=== PATIENT | female | born 1995 | race Caucasian/White ===

== ENCOUNTER 2017-12-02 02:02 | Inpatient (IN) ==
[2017-12-02] MEDS ORDERED: Naloxone Inj 0.4 MG/ML Vial IV.PUSH PRN ×2 (03:02→09:37)
[2017-12-02] MEDS ORDERED: Oxytocin 30 Units/500ml Premix 30 UNITS/500 ML BAG IV.SIG ONE (03:02)
[2017-12-02] MEDS ORDERED: fentaNYL Citrate Inj 100 MCG/2 ML Ampul IV.PUSH PRN ×2 (03:02)
[2017-12-02] MEDS ORDERED: Sodium Chlor 0.9% Inj 500 ML IV.SIG PRN (03:02)
[2017-12-02] MEDS ORDERED: Sod Chloride 0.9% Inj 1,000 ML IV.CONT PRN (03:02)
--- NOTE | 2017-12-02 03:02 | ED ---
History of Present Illness Primary Care Physician: UNKNOWN Chief Complaint: leaking fluid History of Present Illness: Patient is a 22yo at 40 weeks and 3 days. Patient receives care with [facility]. EDC 11-29-2017. Patient states she felt gush of fluid about 23:00 12/02/2017. Fluid was clear She reports irregular contractions starting after rupture. She reports active movements. No fevers or chills. GBS is NEGATIVE. Weeks Gestation:: 40 Para: 0 : 1 - Inpatient Certification I certify that the inpatient services were ordered in accordance with Medicare regulations governing the order. This includes certification that hospital inpatient services are reasonable and necessary and in the case of services not specified as inpatient-only under 42 CFR 419.22(n), that they are appropriately provided as inpatient services in accordance to with the 2-midnight benchmark under 43 CFR 412.3(e) Estimated Total Length of Stay (Days): 3 Plans for Post Hospital Care: Home Review of Systems All other systems reviewed negative except as stated in HPI PMFSH - History History Provided By: Patient - Medical / Surgical Hx Neg / Unobtainable Medical Problems Denied: Yes Surgical History: No Previous Surgery - Social History I have reviewed the patient's Social History: Yes - Tobacco History Second Hand Smoke Exposure: No Tobacco Use In Past 30 Days: No Smoking Status: Never smoker - Alcohol History How Often Do You Have a Drink Containing Alcohol: Never - Substance Use History Substance History: No History of Abuse Medications and Allergies Allergies Allergy/AdvReac Type Severity Reaction Status Date / Time No Known Allergies Allergy Verified 12/02/17 02:46 Home Medications Medication Instructions Recorded Confirmed Type folic acid 0.4 mg PO DAILY 12/02/17 12/02/17 History Exam Vital signs: Vital Signs 12/02/17 02:34 12/02/17 02:39 Temperature 97.9 F Pulse Rate 89 Respiratory Rate 18 Blood Pressure 118/62 Intake & Output 12/01/17 12/01/17 12/02/17 06:59 18:59 06:59 Weight 82.1 kg Narrative: GENERAL: Well-nourished, well-developed patient. SKIN: Warm and dry. HEAD: Normocephalic and atraumatic. EYES: No scleral icterus. No injection or drainage. ENT: No nasal drainage noted. Mucous membranes pink. Airway patent. NECK: Supple, trachea midline. No JVD. CARDIOVASCULAR: Regular rate and rhythm without murmurs, gallops, or rubs. RESPIRATORY: Breath sounds equal bilaterally. No accessory muscle use. BREASTS: Bilateral exam showed no masses , no retractions, no nipple discharge. ABDOMEN/GI: Abdomen soft, non-tender, bowel sounds present, no rebound, no guarding Gravid to [38] weeks size Fundal Height: [-] GENITOURINARY: External Genitalia: intact and normal in appearance BUS glands: [wnl] Cervix: [soft] Dilatation: [2-3cm] Effacement: [80%] Station: [-2] Presentation: [vertex] Membranes: [ruptured] Amiosure position, positive pool Uterine Contractions: [irregular 3-10minutes] FHT's: Category: [1] Baseline: [120s] Reactive: [-] Variability: [moderate] Decels: [none] EXTREMITIES: No cyanosis or edema. BACK: Nontender without obvious deformity. No CVA tenderness. NEUROLOGICAL: Awake and alert. Motor and sensory grossly within normal limits. Five out of 5 muscle strength in all muscle groups. Normal speech. - Constitutional no acute distress Results - Labs CBC & Chem 7: 12/02/17 03:20 Assessment and Plan - Diagnosis (1) 40 weeks gestation of Code(s): Z3A.40 - 40 weeks gestation of Status: Acute (2) Rupture of amniotic sac less than 24 hours prior to the onset of labor Code(s): O42.90 - Premature rupture of membranes, unspecified as to length of time between rupture and onset of labor, unspecified weeks of gestation Status : Acute Plan: GBS negative. Will admit for labor augmentation May have epidural Discharge Plan - Discharge Disposition Patient Disposition: 30 Still Patient - Discharge Condition Condition: Good - Discharge Details Diagnosis: 40 weeks gestation of , Rupture of amniotic sac less than 24 hours prior to the onset of labor - Physicians Team ED Provider: Casimiro Hein Primary Care Provider: UNKNOWN,
[2017-12-02] MEDS ORDERED: Citric Acid/Sodium Citrate Liq 30 ML UDC PO SCH (03:15)
[2017-12-02 03:56] LABS: Baso % (Auto) 0.2 % (0.0-2.0); Eos # (Auto) 0.1 th/mm3 (0.0-0.4); Eos % (Auto) 1.1 % (0.0-4.0); Hematocrit 36.8 % (35.0-46.0); Hemoglobin 12.9 gm/dL (11.6-15.3); Lymph # (Auto) 2.8 th/mm3 (1.0-4.8); Lymph % (Auto) 22.5 % (9.0-44.0); Mean Corpuscular HGB Conc 35.1 % (32.0-36.0); Mean Corpuscular Hemoglobin 32.4 pg (27.0-34.0); Mean Corpuscular Volume 92.5 fL (80.0-100.0); Mean Platelet Volume 8.7 fL (7.0-11.0); Mono # (Auto) 1.7 th/mm3 (0.0-0.9); Neut % (Auto) 63.2 % (16.0-70.0); Platelet Count 254 th/mm3 (150-450); Red Blood Count 3.98 mil/mm3 (4.00-5.30); Red Cell Distribution Width 13.5 % (11.6-17.2); White Blood Count 12.7 th/mm3 (4.0-11.0)
[2017-12-02] MEDS ORDERED: Lidocaaine 1.5%/Epinephrine 1:200,000 PF Inj 5 ML Amp ONE (04:09)
[2017-12-02] MEDS ORDERED: Lidocaine PF 1% Inj 5 ML Vial ONE (04:10)
[2017-12-02 04:11] LABS: Amphetamine Urine With Conf Neg (Neg); Benzodiazepine Urine With Conf Neg (Neg)
[2017-12-02] MEDS ORDERED: fentaNYL 2MCG-Bupiv 0.125% Epi 150 ML EPIDURAL ONE (04:16)
[2017-12-02 04:27] LABS: Bacteria,Urine Rare /hpf; Bilirubin,Urine Negative (Negative); Clarity,Urine Clear (Clear); Color,Urine Straw (Yellw/Straw); Glucose,Urine (UA) Negative (Negative); Leukocyte Esterase,Urine Negative (Negative); Nitrite,Urine Negative (Negative); Specific Gravity,Urine 1.004 (1.002-1.035); Squamous Epithelial Cell,Urine 3 /hpf (0-5)
[2017-12-02] MEDS ORDERED: fentaNYL 2MCG-Bupiv 0.125% Epi 150 ML EPIDURAL PRN (04:56)
[2017-12-02] MEDS ORDERED: fentaNYL Citrate Inj 100 MCG/2 ML Ampul EPIDURAL ONE (04:56)
[2017-12-02] MEDS ORDERED: Oxytocin 30 Units/500ml Premix 30 UNITS/500 ML BAG IV.SIG PRN (05:25)
[2017-12-02] MEDS ORDERED: Lidocaine 1% Inj 50 ML Vial ONE (06:29)
--- NOTE | 2017-12-02 09:33 | P.OBDELI ---
Weeks Gestation: 40 Anesthesia: Epidural Episiotomy: none Vaginal Delivery: Spontaneous Presentation: Occiput anterior Nuchal Cord: None Delayed Cord Clamping (45 sec): Yes Placenta: Spontaneous delivery Laceration: Vaginal, Perineal (Bilateral labial tears. ) Repair: Vicryl interrupted (L Labial repairs, hemostasis achieved. ), Vicryl running (R labial tear and vaginal tear. Hemostasis achieved) Estimated blood loss (mL): 150 Infant: Female Infant Female A Delivery Date: 12/02/17 Infant Delivery Time: 09:00 score (1 min): 9 score (5 min): 9
[2017-12-02] MEDS ORDERED: Oxytocin 30 Units/500ml Premix 30 UNITS/500 ML BAG IV.CONT PRN (09:37)
[2017-12-02] MEDS ORDERED: Benzocaine 20% Top Spray 60 ML Can TOPICAL PRN (09:37)
[2017-12-02] MEDS ORDERED: Zolpidem Tartrate 5 MG Tablet PO PRN (09:37)
[2017-12-02] MEDS ORDERED: Witch Hazel 50%/Glyderin 12.5% 40 Pad Jar RECTAL PRN (09:37)
[2017-12-02] MEDS ORDERED: Bisacodyl 10 MG Supp RECTAL PRN (09:37)
[2017-12-02] MEDS ORDERED: Diphtheria/Tetanus/Pertussis Vaccine Inj 0.5 ML Syringe IM ONE (16:00)
[2017-12-02] MEDS ORDERED: Measles/Mumps/Rubella Vaccine Inj 0.5 ML Vial SQ ONE (16:00)
[2017-12-02] MEDS: Senna/Docusate Sodium 8.6/50 MG Tablet PO SCH (20:34)
[2017-12-03] MEDS: Acetaminophen 325 MG Tablet PO PRN ×3 (00:30→12:29)
--- NOTE | 2017-12-03 08:19 | P.PNOB ---
Subjective Post day: 1 Interval history: day # 1 Afebrile with stable vitals overnight. Decreased lochia. Complains of lower abdominal and vaginal soreness that is exacerbated with urination. No burning or urgency with urination. Appetite good. No nausea or vomiting. Ambulating well. Denies calf pain or shortness of breath. Otherwise, she is doing well this morning and has no other complaints. Objective Vital Signs/I&O: Vital Signs 12/02/17 09:15 12/02/17 09:30 12/02/17 09:45 Temperature Pulse Rate 105 H 98 H Respiratory Rate 16 16 Blood Pressure 129/67 129/65 12/02/17 10:00 12/02/17 10:08 12/02/17 10:30 Temperature 98.5 F Pulse Rate 99 H 102 H Respiratory Rate 16 16 16 Blood Pressure 137/67 114/64 12/02/17 10:45 12/02/17 11:00 12/02/17 11:45 Temperature Pulse Rate 79 Respiratory Rate 16 18 Blood Pressure 121/72 12/02/17 13:00 12/02/17 14:00 12/02/17 20:10 Temperature 98.2 F 98.4 F Pulse Rate 76 72 Respiratory Rate 15 18 Blood Pressure 121/72 112/64 Result Diagrams: 12/02/17 03:20 Objective Remarks: General: Alert, well appearing, in no acute distress Skin: Warm and dry HEENT: Atraumatic. Moist mucus membranes Cardiac: Regular rate and rhythm without murmur Pulmonary: No increased work of breathing. Clear to auscultation bilaterally with good air movement. Abdominal: Non-tender. uterus firm and below the umbilicus Extremities: 2+ pedal pulses, no edema, no calf tenderness Medications and IVs: Active Medications Acetaminophen (Tylenol) 650 mg PO Q4H PRN PRN Reason: PAIN SCALE 1 TO 2 Last Admin: 12/03/17 00:30 Dose: 650 mg Al Hydroxide/Mg Hydroxide (Milk Of Magnjesus Liq) 30 ml PO Q12H PRN PRN Reason: Mild Constipation Benzocaine (Americaine 20% Top [place]) 1 spray TOPICAL Q4H PRN PRN Reason: For Perineum Discomfort Last Admin: 12/02/17 10:50 Dose: 1 spray Bisacodyl (Dulcolax Supp) 10 mg RECTAL DAILY PRN PRN Reason: SEVERE CONSITIPATION Fentanyl/Bupivacaine/Sodium Chlor (Fentanyl 2 Mcg-Bupiv 0.125% Epi) 150 mls @ 12 mls/hr EPIDURAL PRN PRN PRN Reason: for Labor Pain Last Admin: 12/02/17 06:53 Dose: 12 mls/hr Oxytocin (Pitocin 30 Units/Ns 500 Ml Premix) 30 units in 500 mls @ 2 mls/hr IV.SIG TITRATE PRN; Protocol PRN Reason: For induction of labor Last Admin: 12/02/17 05:29 Dose: 2 milliunit/min, 2 mls/hr Oxytocin (Pitocin 30 Units/Ns 500 Ml Premix) 30 units in 500 mls @ 100 mls/hr IV.CONT UNSCH PRN PRN Reason: Heavy bleeding Ibuprofen (Motrin) 800 mg PO Q8H PRN PRN Reason: For Cramping Last Admin: 12/03/17 04:34 Dose: 800 mg Lactulose (Lactulose Liq) 30 ml PO DAILY PRN PRN Reason: SEVERE CONSITIPATION Naloxone HCl (Narcan Inj) 0.1 mg IV.PUSH Q2M PRN PRN Reason: for opiate reversal Ondansetron HCl (Zofran Odt) 4 mg PO Q6H PRN PRN Reason: NAUSEA OR VOMITING Last Admin: 12/02/17 11:55 Dose: 4 mg Oxycodone/Acetaminophen (Percocet 5/325 Mg) 1 tab PO Q4H PRN PRN Reason: PAIN SCALE 3 TO 5 Oxycodone/Acetaminophen (Percocet 5/325 Mg) 2 tab PO Q4H PRN PRN Reason: PAIN SCALE 6 TO 10 Senna/Docusate Sodium (Lyssa-Colace) 1 tab PO BID [facility] Last Admin: 12/02/17 20:34 Dose: 1 tab Sennosides (Senokot) 17.2 mg PO Q12H PRN PRN Reason: Moderate Constipation Sodium Chloride (Ns Flush) 2 ml IV.FLUSH BID [facility] Last Admin: 12/02/17 21:13 Dose: 2 ml Sodium Chloride (Ns Flush) 2 ml IV.FLUSH PRN PRN PRN Reason: FLUSH AFTER USING IV ACCESS Witch Mary/Glycerin (Tucks Pads) 1 applicatio RECTAL QID PRN PRN Reason: HEMORRHOIDS Last Admin: 12/02/17 10:50 Dose: 1 applicatio Zolpidem Tartrate (Ambien) 5 mg PO HS PRN PRN Reason: SLEEP Assessment and Plan - Diagnosis (1) Vaginal delivery Code(s): Z3A.40 - 40 weeks gestation of Status: Acute (2) 40 weeks gestation of Code(s): Z3A.40 - 40 weeks gestation of Status: Acute - Plan 22 y/o female who is PPD# 1 s/p vaginal delivery -Continue routine care. -Motrin /APAP as needed for pain. -Encouraged OOB. Advised pelvic rest for 6 wks. - control: Undecided -Anticipate DC home today or tomorrow Care was discussed with: Dr. Ramos - Attending Attestation The exam, history, and the medical decision-making described in the above note were completed with the assistance of the resident physician. I reviewed and agree with the findings presented. I attest that I had a [id number] encounter with the patient on the same day, and personally performed and documented my assessment and findings in the medical record.
[2017-12-03 08:23] VITALS: BP 109/61
[2017-12-03 08:24] VITALS: PULSE 78; RESP 14
[2017-12-03] MEDS: Senna/Docusate Sodium 8.6/50 MG Tablet PO SCH (08:31)
[2017-12-03 09:46] VITALS: TEMP 97.8
== END 2017-12-03 18:43 | disposition home or self-care (01) ==
LOC: HOBED 02:02 → H2E 02:47 → H1EA 13:01
PROVIDERS: ADMIT Obstetrics & Gynecology; ATTEND Obstetrics & Gynecology